=== PATIENT | female | born 1990 | race African-American/Black ===

== ENCOUNTER 2018-01-17 04:39 | Emergency (ER) | payer BC ==
[2018-01-17 04:55] VITALS: BP 129/71
[2018-01-17 05:39] LABS: APPEARANCE,URINE CLOUDY; BILIRUBIN,URINE NEGATIVE (NEGATIVE); COLOR,URINE AMBER; GLUCOSE, URINE NEGATIVE (NEGATIVE); KETONES,URINE NEGATIVE (NEGATIVE); LEUKOCYTE ESTERASE,URINE SMALL (NEGATIVE); NITRITE,URINE NEGATIVE (NEGATIVE); PROTEIN,URINE 30 mg/dL (NEGATIVE); URINE SPECIFIC GRAVITY 1.034; UROBILINOGEN,URINE NEGATIVE mg/dL (<2.0)
[2018-01-17 06:12] LABS: ABSOLUTE EOSINOPHILS # (AUTO) 0.1 10^3/uL (0.0-0.6); ABSOLUTE LYMPHOCYTES (AUTO) 1.6 10^3/uL (0.5-4.7); ABSOLUTE MONOCYTES (AUTO) 0.8 10^3/uL (0.1-1.4); ABSOLUTE NEUT (AUTO) 6.3 10^3/uL (1.7-8.2); BASOPHILS % (AUTO) 0.2 % (0-2); EOSINOPHILS % (AUTO) 1.2 % (0-6); HEMATOCRIT 34.6 % (36.0-47.0); HEMOGLOBIN 11.7 g/dL (12.0-15.5); LYMPHOCYTES % (AUTO) 18.1 % (13-45); MEAN CORPUSCULAR HEMOGLOBIN 29.4 pg (27.0-33.4); MEAN CORPUSCULAR HGB CONC 33.7 g/dL (32.0-36.0); MEAN CORPUSCULAR VOLUME 87 fl (80-97); MONOCYTES % (AUTO) 8.7 % (3-13); PLATELET COUNT 191 10^3/uL (150-450); RED BLOOD COUNT 3.97 10^6/uL (3.72-5.28); RED CELL DISTRIBUTION WIDTH 14.2 % (11.5-14.0); SEGMENTED NEUTROPHILS % (AUTO) 71.8 % (42-78); TOTAL CELLS COUNTED % (AUTO) 100 %; WHITE BLOOD COUNT 8.8 10^3/uL (4.0-10.5)
[2018-01-17 06:37] LABS: ALANINE AMINOTRANSFERASE 21 U/L (9-52); ALBUMIN 3.6 g/dL (3.5-5.0); ALKALINE PHOSPHATASE 49 U/L (38-126); ANION GAP 13 (5-19); ASPARTATE AMINO TRANSFERASE 20 U/L (14-36); BILIRUBIN,DIRECT 0.2 mg/dL (0.0-0.4); BILIRUBIN,TOTAL 0.4 mg/dL (0.2-1.3); BLOOD UREA NITROGEN 11 mg/dL (7-20); CALCIUM 9.3 mg/dL (8.4-10.2); CARBON DIOXIDE 23 mmol/L (22-30); CHLORIDE 106 mmol/L (98-107); GLUCOSE 83 mg/dL (75-110); LIPASE 52.4 U/L (23-300); POTASSIUM 3.8 mmol/L (3.6-5.0); SODIUM 141.7 mmol/L (137-145); TOTAL PROTEIN 6.5 g/dL (6.3-8.2)
[2018-01-17] MEDS ORDERED: METOCLOPRAMIDE HCL 10 MG TABLET PO ONE (06:51)
--- NOTE | 2018-01-17 07:01 | ER Document Report ---
ED General - General Chief Complaint: Nausea Stated Complaint: ABDOMINAL PAIN Time Seen by Provider: 01/17/18 06:28 - HPI Notes: 27-year-old female states she is proximate 4 weeks by dates who presents with nausea and not feeling well. Patient actually does not have fever , just felt yesterday that she was nauseated all day and feels the same this morning. She felt "sweaty" yesterday but did not measure a fever. She has some equivocal low back pain. She denies abdominal pain. No diarrhea. No vomiting. No cough, runny nose or congestion. No other modifying factors, no other associated symptoms, no other provocative or palliative factors. - Related Data Allergies/Adverse Reactions: No Known Allergies Allergy (Unverified 01/17/18 04:55) Past Medical History - Social History Smoking Status: Never Smoker Chew tobacco use (# tins/day): No Frequency of alcohol use: None Drug Abuse: None Family History: Reviewed & Not Pertinent Patient has suicidal ideation: No Patient has homicidal ideation: No - Medical History Medical History: Negative Renal/ Medical History: Denies: Hx Peritoneal Dialysis Review of Systems - Review of Systems Notes: Review of systems as in the history of present illness, otherwise negative. Physical Exam - Vital signs Vitals: Temp Pulse Resp BP Pulse Ox 97.7 F 75 16 129/71 H 100 01/17/18 04:53 01/17/18 04:53 01/17/18 04:53 01/17/18 04:53 01/17/18 04:53 - Notes Notes: General: Well developed . HEENT: Normocephalic, atraumatic. Pupils equal round reactive to light. No JVD. Chest: No trauma. Respiratory: Good air exchange, normal excursion. Cardiac: Regular rhythm. No murmurs or gallops. Abdomen: Soft, benign. Nondistended. Nontender. Back: No asymmetry or gross abnormality. Motor: Grossly normal power and tone. Neurologic: Alert, nonfocal. Cranial nerves II-12 are intact. Sensation intact. Vascular: Well perfused. Normal peripheral pulses. Skin: No petechiae or purpura. Course - Re-evaluation Re-evalutation: 01/17/18 06:50 Well-appearing 27-year-old female with the after mentioned symptoms. Benign examination, no focus of infection. Given underlying and symptomology , will obtain urinalysis. Other labs were obtained prior to my evaluation the patient and are currently pending. Will treat nausea, reassess. Patient is reevaluated, has had moderate improvement. Labs reviewed, grossly unremarkable, normal CBC and chemistries. Urinalysis appears to be grossly contaminated. Patient is discharged home with a prescription for Reglan, outpatient follow-up. - Vital Signs Vital signs: Temp Pulse Resp BP Pulse Ox 97.7 F 75 16 129/71 H 100 01/17/18 04:53 01/17/18 04:53 01/17/18 04:53 01/17/18 04:53 01/17/18 04:53 - Laboratory Result Diagrams: 01/17/18 05:45 01/17/18 05:45 Laboratory results interpreted by me: 01/17/18 01/17/18 01/17/18 05:10 05:45 05:45 Hgb 11.7 L Hct 34.6 L RDW 14.2 H Beta HCG, Quant 65207.00 H Urine Protein 30 H Ur Leukocyte Esterase SMALL H Urine HCG, Qual POSITIVE H Discharge - Discharge Clinical Impression: Nausea Condition: Good Disposition: HOME, SELF-CARE Instructions: Nausea or Vomiting, Nonspecific ([facility]) Prescriptions: Metoclopramide HCl [Reglan 10 mg Tablet] 1 - 2 tab PO ASDIR PRN #25 tablet PRN Reason: Referrals: BALTA YEE MD [Primary Care Provider] - Follow up as needed
== END 2018-01-17 08:13 | disposition home or self-care (01) ==
LOC: ER 04:39
DX: O26.891 Other specified pregnancy related conditions, first trimester (principal); R11.0 Nausea; R10.9 Unspecified abdominal pain; M54.5 Low back pain; Z3A.01 Less than 8 weeks gestation of pregnancy
CPT/HCPCS: 36415; 80053; 81001; 81025; 83690; 84702; 85025; 99284